=== PATIENT | female | born 1995 | race American Indian/Alaskan Native ===

== ENCOUNTER 2017-03-08 10:18 | Emergency (ER) | payer OTHER ==
--- NOTE | 2017-03-08 10:44 | Emergency Department Report ---
Chief Complaint: Nausea/Vomiting/Diarrhea Stated Complaint: ABD PAIN Time Seen by Provider: 03/08/17 10:42 - HPI History of Present Illness: pt c/o nausea and L knee pain PT states she has hx of broken knee and it still pops - ROS Review of Systems: + nausea x 2-3 days + L knee pain since yesterday - Exam Physical Exam: thin female steady gait mild L ant knee edema noted MSE screening note: Focused history and physical exam performed. Due to findings the following was ordered: labs, xr ED Disposition for MSE Condition: Stable
[2017-03-08 12:29] LABS: Bilirubin,Urine NEG (Negative); Blood,Urine NEG (Negative); Ketones,Urine NEG (Negative); Leukocyte Esterase,Urine TR (Negative); Mucus,Urine FEW /HPF; Nitrite,Urine NEG (Negative); Protein,Urine <15 mg/dL mg/dL (Negative); Urobilinogen,Urine < 2.0 mg/dL (<2.0)
--- NOTE | 2017-03-08 12:48 | XRay Report ---
LEFT KNEE RADIOGRAPHS INDICATION: Pain. COMPARISON: None similar at this institution. FINDINGS: AP, lateral and oblique left knee radiographs demonstrate intact bony articulation and appearance. Normal soft tissues without evidence of suprapatellar effusion. CONCLUSION: Normal left knee radiographs. Thank you for the opportunity to participate in this patient's care.
[2017-03-08 14:52] VITALS: BP 117/74
--- NOTE | 2017-03-08 23:29 | Emergency Department Report ---
Entered by GUY DOMINGUEZ, acting as scribe for NATY CHAPA PAC. ED Extremity Problem HPI - General Chief complaint: Extremity Injury, Lower Time Seen by Provider: 03/08/17 10:42 Source: patient Mode of arrival: Ambulatory Limitations: No Limitations - History of Present Illness Initial comments: 21 y/o female with a PMHx of asthma and chronic left knee pain presents to the ED c/o an acute episode of chronic left knee pain that began intermittently 1 year ago, worsening yesterday. Patient states she fractured her left knee 1 year by falling of a porchand has had a popping sensation in left knee since her injury. Rates left knee pain a 9/10 in severity, which she describes as throbbing in quality. Aggravated with walking, weight bearing, and palpation, and alleviated with immobilization. Reports associated swelling, but she denies any new left knee injury/trauma, numbness, and tingling. Patient states she was prescribed muscle relaxers and pain medication in [place], where she used to live, by an ED to relieve pain. Denies following-up with an electronics specialist for pain. 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 Patient states while she's is walking throughout the day her left knee will pop and give out on her. Allergic to acetaminophen and pamabrom. MD Complaint: extremity pain (left knee pain) Onset/Timin -: year(s) Location: left, knee History of Same: Yes -: Yes arthralgia (left knee) Radiation: none Severity scale (0 -10): 9 Quality: other (throbbing) Consistency: intermittent Improves with: immobilization Worsens with: weight bearing, walking, palpation Associated Symptoms: denies other symptoms, arthralgias (left knee pain), other (LT knee swelling). denies: chest pain, shortness of breath, fever, myalgias, rash - Related Data Previous Rx's Medication Instructions Recorded Last Taken Type Ibuprofen [Motrin 600 MG tab] 600 mg PO Q8H PRN #24 tablet 03/08/17 Unknown Rx Methocarbamol [Robaxin TAB] 750 mg PO Q8H PRN #15 tablet 03/08/17 Unknown Rx Allergies Allergy/AdvReac Type Severity Reaction Status Date / Time acetaminophen [From Midol] AdvReac Vomiting Verified 03/08/17 10:46 pamabrom [From [facility]] AdvReac Vomiting Verified 03/08/17 10:46 ED Review of Systems Comment: All other systems reviewed and negative Constitutional: denies: chills, diaphoresis, fever, malaise, weakness Eyes: denies: eye pain, eye discharge, vision change ENT: denies: ear pain, throat pain Respiratory: denies: cough, shortness of breath, wheezing Cardiovascular: denies: chest pain, palpitations Endocrine: no symptoms reported Gastrointestinal: denies: abdominal pain, nausea, vomiting, diarrhea Musculoskeletal: joint swelling (LT knee), arthralgia (LT knee pain). denies: back pain, myalgia Skin: denies: rash, lesions Neurological: denies: headache, weakness, numbness, paresthesias ED Past Medical Hx - Past Medical History Previous Medical History?: Yes Hx Asthma: Yes - Surgical History Past Surgical History?: No - Social History Smoking Status: Never Smoker Substance Use Type: None - Medications Home Medications: Home Medications Medication Instructions Recorded Confirmed Last Taken Type Ibuprofen [Motrin 600 MG tab] 600 mg PO Q8H PRN #24 tablet 03/08/17 Unknown Rx Methocarbamol [Robaxin TAB] 750 mg PO Q8H PRN #15 tablet 03/08/17 Unknown Rx ED Physical Exam - General Limitations: No Limitations General appearance: alert, in no apparent distress - Head Head exam: Present: atraumatic, normocephalic - Eye Eye exam: Present: normal appearance, PERRL, EOMI Pupils: Present: normal accommodation - ENT ENT exam: Present: normal exam, mucous membranes moist, normal external ear exam - Neck Neck exam: Present: normal inspection, full ROM. Absent: tenderness, meningismus, lymphadenopathy - Respiratory Respiratory exam: Present: normal lung sounds bilaterally. Absent: respiratory distress, wheezes, rales, rhonchi, stridor, accessory muscle use, decreased breath sounds - Cardiovascular Cardiovascular Exam: Present: regular rate, normal rhythm, normal heart sounds. Absent: systolic murmur, diastolic murmur - GI/Abdominal GI/Abdominal exam: Present: soft, normal bowel sounds. Absent: distended - Extremities Exam Extremities exam: Present: full ROM (full, but painful ROM to left knee), tenderness (LT anterior knee), normal capillary refill. Absent: normal inspection, pedal edema, joint swelling, calf tenderness - Expanded Lower Extremity Exam Left Hip exam: Present: normal inspection, full ROM Upper Leg exam: Present: normal inspection, full ROM. Absent: tenderness, swelling, abrasion, laceration, ecchymosis, deformity, crepidus, dislocation, erythema Knee exam: Present: full ROM (full, but painful ROM to left knee), tenderness ( medial left anterior knee), swelling (medial aspect), full knee extension. Absent: normal inspection, abrasion, laceration, ecchymosis, deformity, crepidus , dislocation, erythema, effusion, pain w/ pronation/supination, posterior draw sign, pain/laxity with valgus, pain/laxity with varus Lower Leg exam: Present: normal inspection, full ROM. Absent: tenderness, swelling, abrasion, laceration, ecchymosis, deformity, crepidus, dislocation, erythema, palpable cord, Bertha's sign Ankle exam: Present: normal inspection, full ROM. Absent: tenderness, swelling , abrasion, laceration, ecchymosis, deformity, crepidus, dislocation, erythema, anterior draw sign Foot/Toe exam: Present: normal inspection, full ROM Neuro vascular tendon exam: Present: no vascular compromise. Absent: pulse deficit, abnormal cap refill, motor deficit, sensory deficit, tendon deficit, extremity cold to touch, pallor, abnormal 2-point discrimination, decreased fine /light touch, foot drop, peroneal nerve deficit, significant pain with passive ROM of distal joint Gait: Positive: observed and limited by pain - Back Exam Back exam: Present: normal inspection, full ROM. Absent: tenderness - Neurological Exam Neurological exam: Present: alert, oriented X3, normal gait (limited due to left knee pain) - Psychiatric Psychiatric exam: Present: normal affect, normal mood - Skin Skin exam: Present: warm, dry, intact. Absent: rash, cyanosis ED Course Vital Signs 03/08/17 03/08/17 10:42 14:51 Temperature 98.2 F Pulse Rate 58 L 60 Respiratory 16 20 Rate Blood Pressure 121/73 Blood Pressure 117/74 [Right] O2 Sat by Pulse 100 99 Oximetry ED Medical Decision Making - Medical Decision Making 21 y/o F presents with recurrent right knee pain. Pt states that this is an ongoing issue since last year. Pt states that she has taken Ibuprofen numerous times in the past without any issues and that the midol only gives her a side effect of vomiting and no anaphlaysis symptoms. 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 Knee XR was unremarkable. Muscle relaxants and NSAIDs were were given to patient today. Orthopedic referral provided for patient today for further evaluation. ED Disposition Clinical Impression: Left knee pain Clinical Impression: (Ruled Out): Right knee pain Disposition: DC-01 TO HOME OR SELFCARE Is pt being admited?: No Does the pt Need Aspirin: No Condition: Stable Instructions: RICE Therapy (ED) Additional Instructions: Please take medications as needed for the pain. Please taken muscle relaxants at night or when no driving as it may make you drowsy. Please return to the ED with any worsening or acute sudden changes. RICE= rest, ice compress, and elevate. Please follow- up with ortho for continued or worsening symptoms. Prescriptions: Ibuprofen [Motrin 600 MG tab] 600 mg PO Q8H PRN #24 tablet PRN Reason: Pain Methocarbamol [Robaxin TAB] 750 mg PO Q8H PRN #15 tablet PRN Reason: Pain Referrals: PRIMARY CARE, [Primary Care Provider] - 3-5 Days SAWYER ARCOS MD [Staff Physician] - 3-5 Days Forms: Work/School Release Form(ED) This documentation as recorded by the ANGELICA cruz JASMINE,accurately reflects the service I personally performed and the decisions made by ,NATY CHAPA, PAC.
== END 2017-03-08 14:52 | disposition home or self-care (01) ==
LOC: ED 10:18
DX: M25.562 Pain in left knee (principal); G89.29 Other chronic pain; J45.909 Unspecified asthma, uncomplicated; Z88.8 Allergy status to other drugs, medicaments and biological substances; Z88.6 Allergy status to analgesic agent
CPT/HCPCS: 81001; 81025